=== PATIENT | female | born 1930 | race Caucasian/White ===

== ENCOUNTER 2018-09-03 18:44 | Inpatient (IN) | payer MEDICARE | END 2018-09-08 16:00 | LOC: EDH 18:44 → EDHIP 21:50 → 3BH 23:31 | PROC: 047 Lower Arteries, Dilation (ICD-10-PCS; principal; ~2018-09-03) | PROC: 047 Lower Arteries, Dilation (ICD-10-PCS; ~2018-09-03) | DX: I73.9 Peripheral vascular disease, unspecified (principal); E43 Unspecified severe protein-calorie malnutrition; N39.0 Urinary tract infection, site not specified; I96 Gangrene, not elsewhere classified; I10 Essential (primary) hypertension ==